=== PATIENT | female | born 1970 | race Caucasian/White ===

== ENCOUNTER 2021-10-13 13:31 | Emergency (ER) | payer OTHER ==
[~2021-10-13] VITALS: Ht 175.3 cm; Wt 275.0 kg
[2021-10-13] MEDS ORDERED: ELIQUIS STARTER5 MG PO (16:48)
[2021-10-13] MEDS ORDERED: ELIQUIS5 MG PO (16:48)
[2021-10-13 17:30] VITALS: BP 157/84
== END 2021-10-13 17:30 | disposition home or self-care (01) | DRG 301 ==
LOC: ED 13:31
DX: I82.401 Acute embolism and thrombosis of unspecified deep veins of right lower extremity (principal); E11.9 Type 2 diabetes mellitus without complications; I10 Essential (primary) hypertension